=== PATIENT | female | born 1930 | race Caucasian/White ===

== ENCOUNTER 2018-04-09 05:37 | Emergency (ER) | payer OTHER ==
[2018-04-09] MEDS ORDERED: HYDROCODONE/APAP 5/325 MG TAB ONE (06:20)
[2018-04-09 06:40] LABS: Absolute Lymphocytes (CBC) 1.5 K/uL (0.7-4.9); Absolute Monocytes 0.9 K/uL (0.1-1.3); Absolute Neutrophil 7.6 K/uL (1.8-8.0); Basophils % 0.9 % (0-1.3); Eosinophils % 2.6 % (0-4.4); Hematocrit 34.6 % (36.0-45.0); Lymphocytes % 14.7 % (15.3-44.8); MPV 7.9 fL (7.6-11.3); Monocytes % 8.8 % (3.3-12.3); RBC Red Blood Cell Count 4.05 M/uL (3.86-4.86)
[2018-04-09 06:44] LABS: Protime INR 1.08
[2018-04-09 06:52] LABS: Potassium 3.9 mmol/L (3.5-5.1)
--- NOTE | 2018-04-09 08:22 | RAD REPORT ---
EXAM DESCRIPTION: RAD - Femur Right - 04/09/2018 6:39 am CLINICAL HISTORY: PAIN Right leg pain COMPARISON: None FINDINGS: AP pelvis right femur - multiple projections are submitted Mild osteoarthritic changes of both hips. No fracture, dislocation or AVN. No destructive right femur finding. Right total knee arthroplasty is noted.
--- NOTE | 2018-04-09 09:32 | ER ---
Nurse's Notes [facility] Name: Latia Weller Age: 87 yrs Sex: Female : 1930 Arrival Date: 04/09/2018 Time: 05:42 Bed 5 Private MD: Diagnosis: Pain in right leg;Other slipping, tripping and stumbling and falls Presentation: 04/09 05:44 Presenting complaint: Patient states: right leg pain since Jan 2018. pt had xray to leg ak1 in 2018 with no dx. pt stated the leg " is a leg" pt doctor told her the lung cancer may have spread to her bones and that may be causing pt the leg pain. pt uses a walker at home to ambulate. pt stated her right leg "gave out" and she fell. Transition of care: patient was not received from another setting of care. Onset of symptoms is unknown. Risk Assessment: Do you want to hurt yourself or someone else? Patient reports no desire to harm self or others. Initial Sepsis Screen: Does the patient meet any 2 criteria? No. Patient's initial sepsis screen is negative. Does the patient have a suspected source of infection? No. Patient's initial sepsis screen is negative. Care prior to arrival: None. 05:44 Method Of Arrival: EMS: [facility] ak1 05:44 Acuity: BHARAT 3 ak1 Triage Assessment: 05:49 General: Appears in no apparent distress. Behavior is calm, cooperative. Pain: Denies ak1 pain. EENT: No signs and/or symptoms were reported regarding the EENT system. Neuro: No deficits noted. Cardiovascular: No deficits noted. Respiratory: No deficits noted. GI: No signs and/or symptoms were reported involving the gastrointestinal system. : No signs and/or symptoms were reported regarding the genitourinary system. Derm: No signs and/or symptoms reported regarding the dermatologic system. Musculoskeletal: Reports weakness in right leg. Historical: - Allergies: 05:48 PENICILLINS; ak1 - Home Meds: 05:48 aspirin 81 mg Oral TbEC [Active]; atorvastatin 10 mg Oral tab [Active]; losartan ak1 potassium [Active]; levothyroxine 75 mcg tab [Active]; Creon 24,000-76,000 -120,000 unit Oral cpDR [Active]; 05:49 triameterne [Active]; ak1 - PMHx: 05:48 High Cholesterol; Pancreatitis; Hypertension; Hypothyroidism; ak1 - PSHx: 05:48 cataract sx; Cholecystectomy; Appendectomy; Hysterectomy; knee replacement; ak1 - Immunization history:: Adult Immunizations unknown. - Social history:: Smoking status: Patient/guardian denies using tobacco, the patient reports quitting approximately 15 years ago. - Ebola Screening: : No symptoms or risks identified at this time. Screenin:50 Abuse screen: Denies threats or abuse. Denies injuries from another. Nutritional ak1 screening: No deficits noted. Tuberculosis screening: No symptoms or risk factors identified. Fall Risk None identified. Assessment: 05:50 Reassessment: Patient appears in no apparent distress at this time. No changes from [facility] previously documented assessment. see triage assessment. 07:00 Reassessment: RECD REPORT FROM FIDELIA LOZANO. 87YO WF P/W RLE PAIN, H/O LUNG CA. ALL CURRENT bp ORDERS COMPLETED, RESULTS AND DISPO PENDING. 09:00 Reassessment: ALL CURRENT ORDERS COMPLETED, DISPO PENDING. bp 09:55 Reassessment: PT D/C ON HOLD FOR FAMILY TO TRANSPORT PT HOME. bp 10:32 Reassessment: FAMILY AT B/S FOR D/C. bp Vital Signs: 05:43 BP 120 / 81; Pulse 74; Resp 18; Temp 98.5(O); Pulse Ox 93% on R/A; Weight 77.11 kg (R); ak1 Height 5 ft. 5 in. (165.10 cm) (R); Pain 0/10; 07:00 BP 123 / 57; Pulse 60; Resp 16; Pulse Ox 92% ; bp 08:00 BP 115 / 50; Pulse 60; Resp 14; Pulse Ox 92% ; bp 09:56 BP 130 / 56; Pulse 61; Resp 14; Pulse Ox 92% ; bp 05:43 Body Mass Index 28.29 (77.11 kg, 165.10 cm) ny1 ED Course: 05:42 Patient arrived in ED. ak1 05:46 Triage completed. ak1 05:49 Arm band placed on Patient placed in an exam room, on a stretcher, on pulse oximetry, ak1 Patient notified of wait time. 05:50 Patient has correct armband on for positive identification. Bed in low position. Call ak1 light in reach. Side rails up X 1. Side rails up X2. Pulse ox on. NIBP on. 05:51 Fidelia Gunter, RN is Primary Nurse. ak1 06:03 Rogelio Sultana NP is PHCP. pm1 06:03 Oren Morel MD is Attending Physician. pm1 06:26 Initial lab(s) drawn, by la, sent to lab. X-ray(s) taken. Inserted saline lock: 22 ak1 gauge in right forearm, using aseptic technique. Blood collected. 06:36 X-ray completed. Portable x-ray completed in exam room. Patient tolerated procedure kw well. 06:38 XRAY Pelvis In Process Unspecified. EDMS 06:38 XRAY Femur RIGHT In Process Unspecified. EDMS 07:27 Primary Nurse role handed off by Fidelia Gunter, MARTA bp 07:27 Juan Jose Godoy, MARTA is Primary Nurse. bp 09:56 No provider procedures requiring assistance completed. IV discontinued, intact, bp bleeding controlled, No redness/swelling at site. Pressure dressing applied. Administered Medications: 06:10 Drug: [place] 5 mg-325 mg 1 tabs Route: PO; ak1 09:53 Follow up: Response: No adverse reaction; Pain is decreased bp Outcome: 09:31 Discharge ordered by MD. pm1 09:55 Discharged to home via wheelchair, with family. bp 09:55 Condition: stable 09:55 Discharge instructions given to patient, Instructed on discharge instructions, follow up and referral plans. Demonstrated understanding of instructions, follow-up care. 10:33 Patient left the ED. bp Signatures: Dispatcher [employer] EDTN Ashley Espinal Fidelia Gunter RN RN ak1 Rogelio Sultana NP CIVIL DEFENSE DIRECTOR pm1 Juan Jose Godoy RN RN bp
--- NOTE | 2018-04-09 09:33 | EDPHYS ---
Physician Documentation [facility] Name: Latia Weller Age: 87 yrs Sex: Female : 1930 Arrival Date: 04/09/2018 Time: 05:42 Bed 5 Private MD: ED Physician Oren Morel HPI: 04/09 07:30 This 87 yrs old Female presents to ER via EMS with complaints of Right Leg pm1 Pain. 07:30 The patient presents with pain. The complaints affect the right leg. Context: The pm1 problem was sustained at home, resulted from the patient falling, the patient is able to ambulate, uses a walker, Problem is a result from a previous injury: No. Onset: The symptoms/episode began/occurred this morning. Modifying factors: The symptoms are alleviated by nothing. Associated signs and symptoms: Pertinent negatives calf tenderness, fever, nausea, numbness, tingling, vomiting. Treatment prior to arrival includes: no previous treatment. Patient with right upper leg pain status post fall injury this AM. Patient was walking with her walker when her right knee gave way and she fell on her right side. No headache, head injury, neck pain, LOC. Patient with chronic right leg pain. Historical: - Allergies: 05:48 PENICILLINS; ak1 - Home Meds: 05:48 aspirin 81 mg Oral TbEC [Active]; atorvastatin 10 mg Oral tab [Active]; losartan ak1 potassium [Active]; levothyroxine 75 mcg tab [Active]; Creon 24,000-76,000 -120,000 unit Oral cpDR [Active]; 05:49 triameterne [Active]; ak1 - PMHx: 05:48 High Cholesterol; Pancreatitis; Hypertension; Hypothyroidism; ak1 - PSHx: 05:48 cataract sx; Cholecystectomy; Appendectomy; Hysterectomy; knee replacement; ak1 - Immunization history:: Adult Immunizations unknown. - Social history:: Smoking status: Patient/guardian denies using tobacco, the patient reports quitting approximately 15 years ago. - Ebola Screening: : No symptoms or risks identified at this time. ROS: 07:30 Constitutional: Negative for fever, chills, and weight loss, Eyes: Negative for injury, pm1 pain, redness, and discharge, ENT: Negative for injury, pain, and discharge, Neck: Negative for injury, pain, and swelling, Cardiovascular: Negative for chest pain, palpitations, and edema, Respiratory: Negative for shortness of breath, cough, wheezing, and pleuritic chest pain, Abdomen/GI: Negative for abdominal pain, nausea, vomiting, diarrhea, and constipation, Back: Negative for injury and pain, : Negative for injury, bleeding, discharge, and swelling. 07:30 Neuro: Negative for headache, weakness, numbness, tingling, and seizure. 07:30 MS/extremity: Positive for pain, Negative for decreased range of motion, deformity, swelling. 07:30 Skin: Positive for Bump on her left lower abdomen that has been present for 3 months. Evaluated in the past by PCP and no treatment given for it.. Exam: 07:05 Skin: Appearance: normal except for affected area, Needle aspiration of indurated area pm1 on left lower abdomen without any drainage or purulence. No fluctuance or surrounding cellulitis. Area prepared with iodine. Patient tolerated procedure well. 07:30 Constitutional: This is a well developed, well nourished patient who is awake, alert, pm1 and in no acute distress. Head/Face: Normocephalic, atraumatic. Eyes: Pupils equal round and reactive to light, extra-ocular motions intact. Lids and lashes normal. Conjunctiva and sclera are non-icteric and not injected. Cornea within normal limits. Periorbital areas with no swelling, redness, or edema. ENT: Nares patent. No nasal discharge, no septal abnormalities noted. Tympanic membranes are normal and external auditory canals are clear. Oropharynx with no redness, swelling, or masses, exudates, or evidence of obstruction, uvula midline. Mucous membranes moist. Neck: Trachea midline, no thyromegaly or masses palpated, and no cervical lymphadenopathy. Supple, full range of motion without nuchal rigidity, or vertebral point tenderness. No Meningismus. Chest/axilla: Normal chest wall appearance and motion. Nontender with no deformity. No lesions are appreciated. Cardiovascular: Regular rate and rhythm with a normal S1 and S2. No gallops, murmurs, or rubs. Normal PMI, no JVD. No pulse deficits. Respiratory: Lungs have equal breath sounds bilaterally, clear to auscultation and percussion. No rales, rhonchi or wheezes noted. No increased work of breathing, no retractions or nasal flaring. Abdomen/GI: Soft, non-tender, with normal bowel sounds. No distension or tympany. No guarding or rebound. No evidence of tenderness throughout. Back: No spinal tenderness. No costovertebral tenderness. Full range of motion. 07:30 Musculoskeletal/extremity: Extremities: grossly normal except: noted in the right hip: pain, There is no evidence of decreased ROM, deformity, ROM: full passive range of motion, Circulation is intact in all extremities. Sensation intact. 07:30 Neuro: Orientation: is normal, Motor: is normal, moves all fours. Vital Signs: 05:43 BP 120 / 81; Pulse 74; Resp 18; Temp 98.5(O); Pulse Ox 93% on R/A; Weight 77.11 kg (R); ak1 Height 5 ft. 5 in. (165.10 cm) (R); Pain 0/10; 07:00 BP 123 / 57; Pulse 60; Resp 16; Pulse Ox 92% ; bp 08:00 BP 115 / 50; Pulse 60; Resp 14; Pulse Ox 92% ; bp 09:56 BP 130 / 56; Pulse 61; Resp 14; Pulse Ox 92% ; bp 05:43 Body Mass Index 28.29 (77.11 kg, 165.10 cm) ak1 MDM: 05:56 Patient medically screened. rn 08:25 Data reviewed: vital signs. pm1 09:05 Counseling: I had a detailed discussion with the patient and/or guardian regarding: the pm1 historical points, exam findings, and any diagnostic results supporting the discharge/admit diagnosis, lab results, radiology results, the need for outpatient follow up, to return to the emergency department if symptoms worsen or persist or if there are any questions or concerns that arise at home. 04/09 05:43 Order name: CBC with Diff; Complete Time: 07:04 rn 04/09 05:43 Order name: Basic Metabolic Panel; Complete Time: 07:04 rn 04/09 05:43 Order name: Protime (+inr); Complete Time: 07:04 rn 04/09 05:43 Order name: Ptt, Activated; Complete Time: 07:04 rn 04/09 05:43 Order name: XRAY Pelvis; Complete Time: 15:30 rn 04/09 05:43 Order name: XRAY Femur RIGHT; Complete Time: 08:25 rn Administered Medications: 06:10 Drug: [place] 5 mg-325 mg 1 tabs Route: PO; ak1 09:53 Follow up: Response: No adverse reaction; Pain is decreased bp Disposition: 04/10 07:05 Co-signature as Attending Physician, Oren Morel MD. rn Disposition: 04/09/18 09:31 Discharged to Home. Impression: Pain in right leg, Other slipping, tripping and stumbling and falls. - Condition is Stable. - Discharge Instructions: Fall Prevention in the Home, Musculoskeletal Pain. - Medication Reconciliation Form, Thank You Letter, Antibiotic Education form. - Follow up: Emergency Department; When: As needed; Reason: Worsening of condition. Follow up: Private Physician; When: 2 - 3 days; Reason: Recheck today's complaints, Continuance of care, Re-evaluation by your physician. - Problem is new. - Symptoms have improved. Signatures: Dispatcher [employer] EDMS Oren Morel MD MD rn Krenek, Amber RN RN ak1 Rogelio Sultana, JAMES SCROLL SAW OPERATOR pm1 Juan Jose Godoy RN RN bp Corrections: (The following items were deleted from the chart) 04/09 10:33 09:31 04/09/2018 09:31 Discharged to Home. Impression: Pain in right leg; Other bp slipping, tripping and stumbling and falls. Condition is Stable. Forms are Medication Reconciliation Form, Thank You Letter, Antibiotic Education, Prescription Opioid Use. Follow up: Emergency Department; When: As needed; Reason: Worsening of condition. Follow up: Private Physician; When: 2 - 3 days; Reason: Recheck today's complaints, Continuance of care, Re-evaluation by your physician. Problem is new. Symptoms have improved. pm1
--- NOTE | 2018-04-09 11:01 | RAD REPORT ---
EXAM DESCRIPTION: RAD - Pelvis - 04/09/2018 6:37 am CLINICAL HISTORY: PAIN Right leg pain COMPARISON: None FINDINGS: AP pelvis right femur - multiple projections are submitted Mild osteoarthritic changes of both hips. No fracture, dislocation or AVN. No destructive right femur finding. Right total knee arthroplasty is noted.
== END 2018-04-09 10:33 | disposition home or self-care (01) ==
LOC: ER 05:37
DX: M79.604 Pain in right leg (principal); W01.0XXA Fall on same level from slipping, tripping and stumbling without subsequent striking against object, initial encounter; Y93.01 Activity, walking, marching and hiking; Y92.009 Unspecified place in unspecified non-institutional (private) residence as the place of occurrence of the external cause; Z79.82 Long term (current) use of aspirin; Z88.0 Allergy status to penicillin; I10 Essential (primary) hypertension; E78.00 Pure hypercholesterolemia, unspecified; E03.9 Hypothyroidism, unspecified
CPT/HCPCS: 36415; 72170; 80048; 85025; 85610; 85730; 99284